=== PATIENT | female | born 1940 | race Hispanic/Latino ===

== ENCOUNTER 2019-04-06 16:57 | Inpatient (IN) | payer MEDICARE ==
[2019-04-06] MEDS ORDERED: CEFEPIME/NS 2 GM/100 ML 2 GM/100 ML BAG IV ONE (17:17)
[2019-04-06] MEDS ORDERED: IPRATROPIUM/ALBUTEROL SULFATE 3 ML AMPUL.NEB IH ONE ×2 (17:17→20:33)
--- NOTE | 2019-04-06 17:17 | Emergency Department Report ---
ED Shortness of Breath HPI - General Stated Complaint: PEARL Time Seen by Provider: 04/06/19 17:12 Source: patient, EMS Mode of arrival: Stretcher Limitations: No Limitations - History of Present Illness Initial Comments: Patient is a 78-year-old female that presents emergency room with complaints of shortness of breath 2 days. Patient states her symptoms are worsening. Patien t brought in by EMS. Report received from EMS. EMS states that the patient's initial oxygen saturation was 72% and patient was placed on a nonrebreather patient given magnesium, albuterol and Medrol prior to arrival. Patient states that she is feeling a little bit better. Patient denies chest pain. Patient denies fever and chills. Patient states she has a cough of nonproductive. Patient states she has history of COPD.. MD Complaint: shortness of breath, cough, "asthma attack" -: Sudden Severity: severe Consistency: constant Improves With: oxygen, rest, bronchodilators Worsens With: exertion Known History Of: COPD Associated Symptoms: cough, sputum production Treatments Prior to Arrival: oxygen, bronchodilator, other - Related Data Home Oxygen Therapy: No Home Medications Medication Instructions Recorded Confirmed Last Taken No Known Home Medications [No 04/06/19 04/06/19 Unknown Reported Home Medications] Allergies Allergy/AdvReac Type Severity Reaction Status Date / Time No Known Allergies Allergy Verified 04/06/19 23:11 ED Review of Systems ROS: Stated complaint: PEARL Other details as noted in HPI Constitutional: denies: chills, fever Eyes: denies: eye pain, eye discharge, vision change ENT: denies: ear pain, throat pain Respiratory: cough, shortness of breath, SOB with exertion, SOB at rest, wheezing Cardiovascular: denies: chest pain, palpitations Endocrine: no symptoms reported Gastrointestinal: denies: abdominal pain, nausea, diarrhea Genitourinary: denies: urgency, dysuria, discharge Musculoskeletal: denies: back pain, joint swelling, arthralgia Skin: denies: rash, lesions Neurological: denies: headache, weakness, paresthesias Psychiatric: denies: anxiety, depression Hematological/Lymphatic: denies: easy bleeding, easy bruising ED Past Medical Hx - Past Medical History Previous Medical History?: Yes Hx COPD: Yes - Surgical History Past Surgical History?: No - Family History Family history: no significant - Social History Smoking Status: Current Every Day Smoker Substance Use Type: None - Medications Home Medications: Home Medications Medication Instructions Recorded Confirmed Last Taken Type No Known Home Medications [No 04/06/19 04/06/19 Unknown History Reported Home Medications] ED Physical Exam - General Limitations: No Limitations General appearance: alert, in distress - Head Head exam: Present: atraumatic, normocephalic - Eye Eye exam: Present: normal appearance - ENT ENT exam: Present: mucous membranes moist - Neck Neck exam: Present: normal inspection - Respiratory Respiratory exam: Present: respiratory distress, rhonchi - Cardiovascular Cardiovascular Exam: Present: regular rate, normal rhythm. Absent: systolic murmur, diastolic murmur, rubs, gallop - GI/Abdominal GI/Abdominal exam: Present: soft, normal bowel sounds - Rectal Rectal exam: Present: deferred - Extremities Exam Extremities exam: Present: normal inspection - Back Exam Back exam: Present: normal inspection - Neurological Exam Neurological exam: Present: alert, oriented X3 - Psychiatric Psychiatric exam: Present: normal affect, normal mood - Skin Skin exam: Present: warm, dry, intact, normal color. Absent: rash ED Course Vital Signs 04/06/19 04/06/19 04/06/19 17:22 18:16 19:30 Temperature 98.0 F Pulse Rate 78 87 Respiratory 20 20 20 Rate Blood Pressure 127/65 Blood Pressure 125/75 [Right] O2 Sat by Pulse 98 96 Oximetry 04/06/19 04/07/19 21:27 00:26 Temperature Pulse Rate 81 63 Respiratory 21 20 Rate Blood Pressure Blood Pressure 127/84 129/67 [Right] O2 Sat by Pulse 97 97 Oximetry - Reevaluation(s) Reevaluation #1: Initial evaluation done. Patient's oxygen saturation on 100 and patient is on a nonrebreather. Patient will be decreased to a nasal cannula 4 L. 04/06/19 17:15 Reevaluation #2: Patient's O2 sat on 4 L 100%. We will continue to decrease oxygen. 04/06/19 18:13 Reevaluation #3: I discussed all results with patient. I discussed plan of care with patient. Patient agrees plan of care and admission. 04/06/19 19:13 Reevaluation #4: Patient states she is feeling better. Patient's oxygen is better. Patient wheezing again. Patient will be given another DuoNeb. 04/06/19 20:44 - Consultations Consultation #1: Hospitalist consult for admission. Hospitalist to admit patient. 04/06/19 19:13 ED Medical Decision Making - Lab Data Result diagrams: 04/06/19 17:27 04/06/19 17:27 - EKG Data -: EKG Interpreted by Me EKG shows normal: sinus rhythm, axis, intervals, QRS complexes, ST-T waves Rate: normal - Radiology Data Radiology results: report reviewed, image reviewed CHEST 1 VIEW 1739 INDICATION / CLINICAL INFORMATION: Dyspnea. COMPARISON: None available. FINDINGS: SUPPORT DEVICES: None HEART / MEDIASTINUM: No significant abnormality. LUNGS / PLEURA: Diffuse moderate chronic appearing changes are seen throughout both lung leach. Density in the right upper lung field appears to represent calcification from the anterior right first rib. No areas of consolidation are seen. No pneumothorax. ADDITIONAL FINDINGS: No significant additional findings. IMPRESSION: Moderate chronic changes are noted. Though without prior studies it is difficult to exclude an acute change, no obvious acute abnormalities are seen. - Medical Decision Making Patient is a 78-year-old female that presents emergency room for wheezing, cough and shortness of breath. Patient found to be in COPD exacerbation along with hypoxia. Patient placed on oxygen. Patient given multiple medications prior to arrival, Medrol, oxygen, albuterol, magnesium run. Patient 100% on a nonrebreather and was transitioned to a nasal cannula. Patient admitted to the hospitalist service. Patient's labs unremarkable. Patient's chest x-ray negative. Patient given DuoNeb in the ER. - Differential Diagnosis wheezing. Cough. Shortness of breath. COPD exacerbation. Hypoxia Critical Care Time: Yes Critical care attestation.: If time is entered above; I have spent that time in minutes in the direct care of this critically ill patient, excluding procedure time. Critical Care Time: 45 minutes ED Disposition Clinical Impression: Hypoxia, SOB (shortness of breath), Respiratory distress, COPD exacerbation Disposition: OP ADMIT IP TO THIS HOSP Is pt being admited?: Yes Does the pt Need Aspirin: No Condition: Critical Time of Disposition: 19:12
[2019-04-06 17:53] LABS: Hemoglobin 11.3 gm/dl (10.1-14.3); Lymphocytes % (Auto) 19.5 % (13.4-35.0); Mean Corpuscular HGB Conc 32 % (30-34); Mean Corpuscular Volume 78 fl (79-97); Monocytes % (Auto) 7.7 % (0.0-7.3); Platelet Count 208 K/mm3 (140-440); Red Blood Count 4.64 M/mm3 (3.65-5.03); Red Cell Distribution Width 19.5 % (13.2-15.2)
[2019-04-06 17:54] LABS: Basophils # (Auto) 0.1 K/mm3 (0.0-0.1); Basophils % (Auto) 1.5 % (0.0-1.8); Eosinophils # (Auto) 0.5 K/mm3 (0.0-0.4); Eosinophils % (Auto) 7.6 % (0.0-4.3); Lymphocytes # (Auto) 1.3 K/mm3 (1.2-5.4); Monocytes # (Auto) 0.5 K/mm3 (0.0-0.8)
--- NOTE | 2019-04-06 17:56 | XRay Report ---
CHEST 1 VIEW 1739 INDICATION / CLINICAL INFORMATION: Dyspnea. COMPARISON: None available. FINDINGS: SUPPORT DEVICES: None HEART / MEDIASTINUM: No significant abnormality. LUNGS / PLEURA: Diffuse moderate chronic appearing changes are seen throughout both lung leach. Dens ity in the right upper lung field appears to represent calcification from the anterior right first ri b. No areas of consolidation are seen. No pneumothorax. ADDITIONAL FINDINGS: No significant additional findings. IMPRESSION: Moderate chronic changes are noted. Though without prior studies it is difficult to exclu de an acute change, no obvious acute abnormalities are seen. Signer Name: Bharath Ludwig MD Signed: 04/06/2019 5:52 PM Workstation Name: [id number]
[2019-04-06 17:59] LABS: Alanine Aminotransferase 7 units/L (7-56); BUN/Creatinine Ratio 23; Blood Urea Nitrogen 14 mg/dL (7-17); Calcium 9.2 mg/dL (8.4-10.2); Hemolysis Index 2
--- NOTE | 2019-04-06 23:09 | History and Physical Report ---
History of Present Illness Date of examination: 04/06/19 History of present illness: 78-year-old woman with a history of COPD comes emergency room with complaints of shortness of breath, wheezing. Also complain of chest pain in the epigastric area that started yesterday which she described as a hurting pain, constant, intensity follow 10, no radiation, cannot identify exacerbating or relieving factors. Denies nausea vomiting, diaphoresis or palpitation eview Of Systems: Constitutional: no weight loss, fever, chills Ears, eyes, nose, mouth and throat: no nasal congestion, no nasal discharge, no sinus pressure, blurry vision, diplopia Neck: No neck pain or rigidity. Cardiovascular: No palpitations, Respiratory: No cough Gastrointestinal: No hematochezia, abdominal pain Genitourinary : no dysuria, frequency , hematuria Musculoskeletal: no muscle ache , joint pain Integumentary: no rash, no pruritis Neurological: no parathesias, focal weakness Endocrine: no cold or heat intolerance, no polyuria or polydipsia Hematologic/Lymphatic: no easy bruising, no easy bleeding, no gland swelling Allergic/Immunologic: no urticaria, no angioedema. PAST MEDICAL HISTORY: COPD PAST SURGICAL HISTORY: none FAMILY HISTORY:hypertension, diabetes SOCIAL HISTORY: + tobacco, no drugs, alcohol Medications and Allergies Allergies Allergy/AdvReac Type Severity Reaction Status Date / Time No Known Allergies Allergy Verified 04/06/19 23:11 Home Medications Medication Instructions Recorded Confirmed Last Taken Type No Known Home Medications [No 04/06/19 04/06/19 Unknown History Reported Home Medications] Exam - Physical Exam Narrative exam: General Apperance: The patient sitting in bed no acute distress HEENT: Normocephalic, atraumatic. Pupils equally round and reactive to light, extraocular movement intact, and no sclericterus or JVD or thyromegaly or nodule. Neck supple, no carotid bruit, mucous membranes moist, no exudate or erythema Heart: S1-S2, regular is rhythm Lungs: Wheezing bilaterally, breathing comfortable Abdomen: Positive bowel sounds, soft, nontender, nondistended, no organomegaly Extremities: No edema cyanosis clubbing Skin: no rash, nodule, warm and dry Neuro:CN 2 -12 intact, motor/sensory intact, speech is fluent - Constitutional Vitals: Temp Pulse Resp BP Pulse Ox 98.0 F 81 21 127/84 97 04/06/19 17:22 04/06/19 21:27 04/06/19 21:27 04/06/19 21:27 04/06/19 21:27 Results - Labs CBC & Chem 7: 04/07/19 04:26 04/07/19 04:26 Labs: Abnormal lab results 04/06/19 04/06/19 Range/Units 17:27 17:27 MCV 78 L (79-97) fl MCH 25 L (28-32) pg RDW 19.5 H (13.2-15.2) % [place] % (Auto) 7.7 H (0.0-7.3) % Eos % (Auto) 7.6 H (0.0-4.3) % Eos # 0.5 H (0.0-0.4) K/mm3 Creatinine 0.6 L (0.7-1.2) mg/dL Glucose 115 H (65-100) mg/dL - Imaging and Cardiology EKG: image reviewed Chest x-ray: report reviewed Assessment and Plan Assessment Acute COPD exacerbation Chest pain Plan Start high-dose steroids, and breathing treatment Check cardiac enzymes, stress test DVT prophylaxis
[2019-04-07] MEDS ORDERED: ACETAMINOPHEN 325 MG TAB PO PRN (01:04)
[2019-04-07] MEDS ORDERED: ONDANSETRON 4 MG/2 ML INJ IV PRN (01:04)
[2019-04-07 02:18] LABS: Creatine Kinase MB 3.4 ng/mL (0.0-4.0)
[2019-04-07] MEDS: IPRATROPIUM/ALBUTEROL SULFATE 3 ML AMPUL.NEB IH SCH ×3 (03:21→14:09)
[2019-04-07 05:19] LABS: Basophils % (Auto) 0.5 % (0.0-1.8); Eosinophils % (Auto) 0.1 % (0.0-4.3); Hematocrit 36.8 % (30.3-42.9); Hemoglobin 11.7 gm/dl (10.1-14.3); Lymphocytes # (Auto) 0.3 K/mm3 (1.2-5.4); Lymphocytes % (Auto) 9.9 % (13.4-35.0); Mean Corpuscular HGB Conc 32 % (30-34); Mean Corpuscular Volume 77 fl (79-97); Monocytes # (Auto) 0.1 K/mm3 (0.0-0.8); Monocytes % (Auto) 1.5 % (0.0-7.3); Platelet Count 233 K/mm3 (140-440); Red Blood Count 4.76 M/mm3 (3.65-5.03); Red Cell Distribution Width 19.5 % (13.2-15.2)
[2019-04-07 05:44] LABS: BUN/Creatinine Ratio 30; Blood Urea Nitrogen 18 mg/dL (7-17); Calcium 9.1 mg/dL (8.4-10.2); Hemolysis Index 0
[2019-04-07] MEDS: methylPREDNISolone Sod Succinate 125 MG/2 ML INJ IV SCH ×2 (06:27→13:21)
[2019-04-07 07:22] LABS: Creatine Kinase MB 2.7 ng/mL (0.0-4.0)
[2019-04-07] MEDS ORDERED: REGADENOSON 0.4 MG/5 ML INJ IV ONE ×2 (08:56→08:57)
[2019-04-07] MEDS ORDERED: ENOXAPARIN 30 MG/0.3 ML INJ SUB-Q SCH (10:00)
--- NOTE | 2019-04-07 10:41 | Progress Note ---
Assessment and Plan Assessment and plan: Acute COPD exacerbation. Continue bronchodilators and nebulizer treatments. Continue O2. Systemic steroids. Chest pain. Stress thallium today. Tobacco abuse. Patient was counseled on cessation. History Interval history: No new issues overnight. Patient seen in stress lab still complaining of chest pain. Hospitalist Physical - Constitutional Vitals: Temp Pulse Resp BP Pulse Ox 97.9 F 92 H 20 131/64 97 04/07/19 07:39 04/07/19 08:00 04/07/19 08:00 04/07/19 09:48 04/07/19 08:19 General appearance: Present: no acute distress, well-nourished - EENT Eyes: Present: PERRL, EOM intact ENT: hearing intact, clear oral mucosa, dentition normal - Neck Neck: Present: supple, normal ROM - Respiratory Respiratory effort: normal Respiratory: bilateral: CTA - Cardiovascular Rhythm: regular Heart Sounds: Present: S1 & S2. Absent: gallop, rub - Extremities Extremities: no ischemia, No edema, Full ROM - Abdominal General gastrointestinal: soft, non-tender, non-distended, normal bowel sounds - Integumentary Integumentary: Present: clear, warm, dry - Neurologic Neurologic: CNII-XII intact, moves all extremities Results - Labs CBC & Chem 7: 04/07/19 04:26 04/07/19 04:26 Labs: Laboratory Last Values WBC 3.5 K/mm3 (4.5-11.0) L 04/07/19 04:26 RBC 4.76 M/mm3 (3.65-5.03) 04/07/19 04:26 Hgb 11.7 gm/dl (10.1-14.3) 04/07/19 04:26 Hct 36.8 % (30.3-42.9) 04/07/19 04:26 MCV 77 fl (79-97) L 04/07/19 04:26 MCH 25 pg (28-32) L 04/07/19 04:26 MCHC 32 % (30-34) 04/07/19 04:26 RDW 19.5 % (13.2-15.2) H 04/07/19 04:26 Plt Count 233 K/mm3 (140-440) 04/07/19 04:26 Lymph % (Auto) 9.9 % (13.4-35.0) L 04/07/19 04:26 [place] % (Auto) 1.5 % (0.0-7.3) 04/07/19 04:26 Eos % (Auto) 0.1 % (0.0-4.3) 04/07/19 04:26 Baso % (Auto) 0.5 % (0.0-1.8) 04/07/19 04:26 Lymph # 0.3 K/mm3 (1.2-5.4) L 04/07/19 04:26 [place] # 0.1 K/mm3 (0.0-0.8) 04/07/19 04:26 Eos # 0.0 K/mm3 (0.0-0.4) 04/07/19 04:26 Baso # 0.0 K/mm3 (0.0-0.1) 04/07/19 04:26 Seg Neutrophils % 88.0 % (40.0-70.0) H 04/07/19 04:26 Seg Neutrophils # 3.1 K/mm3 (1.8-7.7) 04/07/19 04:26 Sodium 137 mmol/L (137-145) 04/07/19 04:26 Potassium 4.7 mmol/L (3.6-5.0) D 04/07/19 04:26 Chloride 98.4 mmol/L (98-107) 04/07/19 04:26 Carbon Dioxide 25 mmol/L (22-30) 04/07/19 04:26 Anion Gap 18 mmol/L 04/07/19 04:26 BUN 18 mg/dL (7-17) H 04/07/19 04:26 Creatinine 0.6 mg/dL (0.7-1.2) L 04/07/19 04:26 Estimated GFR > 60 ml/min 04/07/19 04:26 BUN/Creatinine Ratio 30 % 04/07/19 04:26 Glucose 145 mg/dL (65-100) H 04/07/19 04:26 Calcium 9.1 mg/dL (8.4-10.2) 04/07/19 04:26 Total Bilirubin 0.70 mg/dL (0.1-1.2) 04/06/19 17:27 AST 14 units/L (5-40) 04/06/19 17:27 ALT 7 units/L (7-56) 04/06/19 17:27 Alkaline Phosphatase 87 units/L (35-129) 04/06/19 17:27 Total Creatine Kinase 52 units/L (30-135) 04/07/19 06:58 CK-MB (CK-2) 2.7 ng/mL (0.0-4.0) 04/07/19 06:58 CK-MB (CK-2) Rel Index 5.1 (0-4) H 04/07/19 06:58 Troponin T < 0.010 ng/mL (0.00-0.029) 04/07/19 06:58 Total Protein 7.0 g/dL (6.3-8.2) 04/06/19 17:27 Albumin 4.0 g/dL (3.9-5) 04/06/19 17:27 Albumin/Globulin Ratio 1.3 % 04/06/19 17:27 Active Medications - Current Medications Current Medications: Generic Name Dose Route Start Last Admin Trade Name Freq PRN Reason Stop Dose Admin Acetaminophen 650 mg 04/07/19 01:04 Tylenol PO Q4H PRN Pain MILD(1-3)/Fever >100.5/MCWILLIAMS Albuterol/Ipratropium 1 ampul 04/07/19 02:00 04/07/19 08:16 Duoneb *Not For Prn Use* IH 1 ampul Q6HRT SEMAJ Administration Enoxaparin Sodium 30 mg 04/07/19 10:00 Lovenox SUB-Q QDAY SEMAJ Methylprednisolone Sodium Succinate 80 mg 04/07/19 06:00 04/07/19 06:27 Solu-Medrol IV 80 mg Q8HR SEMAJ Administration Ondansetron HCl 4 mg 04/07/19 01:04 Zofran IV Q8H PRN Nausea And Vomiting Pneumococcal Polyvalent Vaccine 0.5 ml 04/07/19 12:00 Pneumovax 23 IM 04/07/19 12:01 .ONCE ONE Sodium Chloride 10 ml 04/07/19 10:00 Sodium Chloride Flush Syringe 10 Ml IV BID SEMAJ Sodium Chloride 10 ml 04/07/19 01:04 Sodium Chloride Flush Syringe 10 Ml IV PRN PRN LINE FLUSH
[2019-04-07] MEDS ORDERED: PNEUMOCOCCAL 23 Valent 0.5 ML VIAL IM ONE (12:00)
[2019-04-07] MEDS ORDERED: FLU VACC QUAD 2019-20 (3 YR UP)/PF 60 MCG/0.5 ML SYRINGE IM ONE (12:00)
[2019-04-07 12:33] VITALS: BP 138/84
--- NOTE | 2019-04-08 01:16 | Treadmill Report ---
THALLIUM STRESS TEST. LEFT VENTRICLE: Left ventricular chamber size is within normal spread. There is a small fixed apical defect consistent with normal apical thinning, otherwise homogeneous uptake of the tracer in all segments, no significant defects identified. Gated analysis demonstrates normal left ventricular systolic function, ejection fraction greater than 70%. CONCLUSION: Normal myocardial perfusion study. [facility]# [id number] CA/NTS
--- NOTE | 2019-04-08 10:07 | Discharge Summary ---
Providers - Providers Date of Admission: 04/06/19 23:08 Date of discharge: 04/07/19 Attending physician: SAVANNAH BELCHER Primary care physician: ERIKA HAAS MD Hospitalization Reason for admission: copd, cp Condition: Fair Hospital course: 78-year-old woman with a history of COPD comes emergency room with complaints of shortness of breath, wheezing. Also complain of chest pain in the epigastric area that started yesterday which she described as a hurting pain, constant, intensity follow 10, no radiation, cannot identify exacerbating or relieving factors. The patient was admitted with diagnosis of COPD exacerbation and chest pain. The patient received bronchodilators/nebulizers and systemic steroids. The patient underwent stress test that was negative for ischemia. Patient needed continued treatment for the COPD exacerbation however left AMA. Discharge time 32 minutes. Disposition: DC-07 LEFT AGAINST MED ADVICE Core Measure Documentation - Palliative Care Palliative Care/ Comfort Measures: Not Applicable - Core Measures Any of the following diagnoses?: none Exam - Constitutional Vitals: Temp Pulse Resp BP Pulse Ox 97.7 F 94 H 18 138/84 93 04/07/19 12:05 04/07/19 14:00 04/07/19 14:00 04/07/19 12:05 04/07/19 12:05 Plan Follow up with: ERIKA MCGOWAN MD [Primary Care Provider] - 3-5 Days
== END 2019-04-07 17:17 | disposition left against medical advice (07) | DRG 192 ==
LOC: ED 16:57 → 4A 23:08
PROVIDERS: ADMIT Internal Medicine; ATTEND Hospitalist
PROC: 3E0234Z Introduction of Serum, Toxoid and Vaccine into Muscle, Percutaneous Approach (ICD-10-PCS; principal; 2019-04-07)
DX: J44.1 Chronic obstructive pulmonary disease with (acute) exacerbation (principal); F17.200 Nicotine dependence, unspecified, uncomplicated; R09.02 Hypoxemia; R06.03 Acute respiratory distress; Z71.6 Tobacco abuse counseling; Z82.49 Family history of ischemic heart disease and other diseases of the circulatory system; Z83.3 Family history of diabetes mellitus; Z23 Encounter for immunization
CPT/HCPCS: 36415; 71045; 78452; 80048; 80053; 82550; 82553; 84484; 85025; 87116; 90686; 90732; 93005; 93010; 93017; 94640; 94760; 99406; G0378; A9502; J0692; J1650; J2785; J2930

== ENCOUNTER 2019-06-07 20:45 | Emergency (ER) | payer MEDICARE ==
--- NOTE | 2019-06-07 21:20 | Event Note ---
ED Screening Note Date of service: 06/07/19 Time: 21:16 ED Screening Note: 78 y o f presents with sob x today at rest PMH: copd out of albuterol tobacco smoker This initial assessment/diagnostic orders/clinical plan/treatment(s) is/are subject to change based on patients health status, clinical progression and re- assessment by fellow clinical providers in the ED. Further treatment and workup at subsequent clinical providers discretion. Patient/guardian urged not to elope from the ED as their condition may be serious if not clinically assessed and managed. Initial orders include: cxr
[2019-06-07 21:41] LABS: Basophils # (Auto) 0.1 K/mm3 (0.0-0.1); Basophils % (Auto) 1.7 % (0.0-1.8); Eosinophils # (Auto) 0.7 K/mm3 (0.0-0.4); Eosinophils % (Auto) 11.2 % (0.0-4.3); Hematocrit 37.4 % (30.3-42.9); Lymphocytes # (Auto) 1.2 K/mm3 (1.2-5.4); Lymphocytes % (Auto) 20.1 % (13.4-35.0); Mean Corpuscular HGB Conc 32 % (30-34); Mean Corpuscular Volume 79 fl (79-97); Monocytes # (Auto) 0.4 K/mm3 (0.0-0.8); Monocytes % (Auto) 6.7 % (0.0-7.3); Platelet Count 315 K/mm3 (140-440); Red Blood Count 4.73 M/mm3 (3.65-5.03)
[2019-06-07 21:58] LABS: Creatine Kinase MB 5.2 ng/mL (0.0-4.0)
[2019-06-07 21:59] LABS: BUN/Creatinine Ratio 25; Blood Urea Nitrogen 15 mg/dL (7-17); Calcium 9.5 mg/dL (8.4-10.2); Hemolysis Index 10
[2019-06-07] MEDS ORDERED: predniSONE 20 MG TAB PO ONE (22:44)
[2019-06-07] MEDS ORDERED: IPRATROPIUM/ALBUTEROL SULFATE 3 ML AMPUL.NEB IH ONE (22:44)
[2019-06-07] MEDS ORDERED: levoFLOXacin 500 MG TAB PO ONE (22:44)
--- NOTE | 2019-06-07 22:44 | XRay Report ---
CHEST 2 VIEWS INDICATION / CLINICAL INFORMATION: sob. Dyspnea. COMPARISON: None available. FINDINGS: SUPPORT DEVICES: None. HEART / MEDIASTINUM: No significant abnormality. LUNGS / PLEURA: Extensive COPD type changes without evidence of acute airspace pneumonia. Signer Name: Kristian Singleton MD Signed: 06/07/2019 10:40 PM Workstation Name: [id number]
--- NOTE | 2019-06-07 22:50 | Emergency Department Report ---
ED Shortness of Breath HPI - General Chief Complaint: Dyspnea/Respdistress Stated Complaint: CHEST PAIN/WHEEZING Time Seen by Provider: 06/07/19 22:43 Source: patient, family Mode of arrival: Ambulatory Limitations: Physical Limitation - History of Present Illness Initial Comments: Mrs. Angeles is a 78-year-old female with history of COPD, dementia who presents with shortness of breath and wheezing. She has been without her normal albuterol medication until today. Symptoms are worsening morning. She denies chest pain. Denies fever. She has nonproductive cough. She continues to smoke cigarettes. She recently changed to a new physician in [place]. She does not require home oxygen supplementation. She lives with her children. Her son is at the bedside. I reviewed electronic record. She was recently admitted April for COPD exacerbation. She underwent stress test at that time which was negative for ischemia. According to electronic record thallium treadmill test normal myocardial perfusion study with ejection fraction greater than 70%. Normal left ventricular systolic function. MD Complaint: shortness of breath -: Gradual, days(s) (2) Consistency: now resolved Improves With: bronchodilators Worsens With: lying flat, exertion Known History Of: COPD Context: smoke/fume exposure, other (she has been without medication for the last several days) Associated Symptoms: cough - Related Data Previous Rx's Medication Instructions Recorded Last Taken Type Prednisone [predniSONE 5 mg (6-Day 5 mg PO .TAPER #1 tab.ds.pk 06/07/19 Unknown Rx Pack, 21 Tabs)] levoFLOXacin [Levaquin TAB] 500 mg PO QDAY 6 Days #6 tablet 06/07/19 Unknown Rx Allergies Allergy/AdvReac Type Severity Reaction Status Date / Time No Known Allergies Allergy Verified 04/06/19 23:11 ED Review of Systems ROS: Stated complaint: CHEST PAIN/WHEEZING Other details as noted in HPI Comment: All other systems reviewed and negative Constitutional: denies: fever, malaise Respiratory: cough, shortness of breath, wheezing Cardiovascular: denies: chest pain ED Past Medical Hx - Past Medical History Previous Medical History?: Yes Hx Pulmonary Embolism: No Hx Seizures: No Hx Asthma: Yes Hx COPD: Yes Hx Tuberculosis: No Hx Dementia: Yes Additional medical history: back pain - Surgical History Past Surgical History?: Yes Additional Surgical History: back surgery - Social History Smoking Status: Current Some Day Smoker Substance Use Type: None - Medications Home Medications: Home Medications Medication Instructions Recorded Confirmed Last Taken Type Prednisone [predniSONE 5 mg (6-Day 5 mg PO .TAPER #1 tab.ds.pk 06/07/19 Unknown Rx Pack, 21 Tabs)] levoFLOXacin [Levaquin TAB] 500 mg PO QDAY 6 Days #6 tablet 06/07/19 Unknown Rx ED Physical Exam - General Limitations: Physical Limitation General appearance: alert, in no apparent distress, other (speaking full word sentences, appears comfortable) - Head Head exam: Present: atraumatic, normocephalic - Eye Eye exam: Present: normal appearance - ENT ENT exam: Present: mucous membranes moist - Neck Neck exam: Present: normal inspection, full ROM - Respiratory Respiratory exam: Present: normal lung sounds bilaterally. Absent: respiratory distress, wheezes, rales, rhonchi - Cardiovascular Cardiovascular Exam: Present: regular rate, normal rhythm, normal heart sounds. Absent: systolic murmur, diastolic murmur, rubs, gallop - GI/Abdominal GI/Abdominal exam: Present: soft, normal bowel sounds. Absent: distended, guarding, rebound - Extremities Exam Extremities exam: Present: normal inspection - Neurological Exam Neurological exam: Present: alert, oriented X3 - Psychiatric Psychiatric exam: Present: normal affect, normal mood - Skin Skin exam: Present: warm, dry, intact, normal color. Absent: rash ED Course Vital Signs 06/07/19 06/07/19 21:14 22:43 Temperature 98.4 F Pulse Rate 93 H 84 Respiratory 18 16 Rate Blood Pressure 160/82 Blood Pressure 160/82 149/87 [Left] O2 Sat by Pulse 93 100 Oximetry ED Medical Decision Making - Lab Data Result diagrams: 06/07/19 21:28 06/07/19 21:28 Laboratory Results - last 24 hr 06/07/19 06/07/19 21:28 21:28 WBC 6.0 RBC 4.73 Hgb 12.0 Hct 37.4 MCV 79 MCH 25 L MCHC 32 RDW 19.0 H Plt Count 315 Lymph % (Auto) 20.1 [place] % (Auto) 6.7 Eos % (Auto) 11.2 H Baso % (Auto) 1.7 Lymph # 1.2 [place] # 0.4 Eos # 0.7 H Baso # 0.1 Seg Neutrophils % 60.3 Seg Neutrophils # 3.6 Sodium 138 Potassium 4.4 Chloride 100.4 Carbon Dioxide 27 Anion Gap 15 BUN 15 Creatinine 0.6 L Estimated GFR > 60 BUN/Creatinine Ratio 25 Glucose 98 Calcium 9.5 Total Creatine Kinase 78 CK-MB (CK-2) 5.2 H CK-MB (CK-2) Rel Index 6.6 H Troponin T < 0.010 - Radiology Data Radiology results: report reviewed, image reviewed Chest radiograph: Hyperinflated lungs, no pneumothorax, no infiltrate, normal cardiac silhouette process - Medical Decision Making Mild COPD exacerbation, provided DuoDERM Levaquin and prednisone and emergency department. Prescribed Levaquin and prednisone taper. Mrs. Angeles appears well. She will be discharged home. Critical care attestation.: If time is entered above; I have spent that time in minutes in the direct care of this critically ill patient, excluding procedure time. ED Disposition Clinical Impression: COPD exacerbation Disposition: DC-01 TO HOME OR SELFCARE Is pt being admited?: No Does the pt Need Aspirin: No Condition: Stable Instructions: Chronic Obstructive Pulmonary Disease (ED) Prescriptions: levoFLOXacin [Levaquin TAB] 500 mg PO QDAY 6 Days #6 tablet Prednisone [predniSONE 5 mg (6-Day Pack, 21 Tabs)] 5 mg PO .TAPER #1 tab.ds.pk Referrals: PRIMARY CARE, [Referring] - 3-5 Days
[2019-06-08 00:08] VITALS: BP 127/60
== END 2019-06-07 23:32 | disposition home or self-care (01) ==
LOC: ED 20:45
DX: J44.1 Chronic obstructive pulmonary disease with (acute) exacerbation (principal); J45.909 Unspecified asthma, uncomplicated; F03.90 Unspecified dementia, unspecified severity, without behavioral disturbance, psychotic disturbance, mood disturbance, and anxiety; F17.200 Nicotine dependence, unspecified, uncomplicated; Z98.890 Other specified postprocedural states; Z79.899 Other long term (current) drug therapy
CPT/HCPCS: 36415; 71046; 80048; 82550; 82553; 84484; 85025; 93005; 93010; 94640; 99284; J7512; 94644

== ENCOUNTER 2019-07-08 00:40 | Observation (INO) | payer MEDICARE ==
[2019-07-08] MEDS ORDERED: IPRATROPIUM 0.02% NEBU 2.5 ML IH ONE (00:51)
[2019-07-08] MEDS ORDERED: ALBUTEROL 2.5 MG/3 ML NEBU IH ONE (00:51)
[2019-07-08] MEDS ORDERED: methylPREDNISolone Sod Succinate 125 MG/2 ML INJ IV ONE (00:51)
[2019-07-08] MEDS ORDERED: MAGNESIUM SULFATE 1 GM in SODIUM CHLORIDE 0.9% 50 ML IV ONE (00:52)
[2019-07-08 01:11] LABS: Basophils # (Auto) 0.1 K/mm3 (0.0-0.1); Basophils % (Auto) 1.4 % (0.0-1.8); Eosinophils # (Auto) 0.4 K/mm3 (0.0-0.4); Eosinophils % (Auto) 7.8 % (0.0-4.3); Hematocrit 38.5 % (30.3-42.9); Hemoglobin 12.3 gm/dl (10.1-14.3); Lymphocytes # (Auto) 1.6 K/mm3 (1.2-5.4); Lymphocytes % (Auto) 30.5 % (13.4-35.0); Mean Corpuscular HGB Conc 32 % (30-34); Mean Corpuscular Volume 80 fl (79-97); Monocytes # (Auto) 0.5 K/mm3 (0.0-0.8); Monocytes % (Auto) 8.5 % (0.0-7.3); Platelet Count 239 K/mm3 (140-440); Red Cell Distribution Width 18.9 % (13.2-15.2)
--- NOTE | 2019-07-08 01:19 | XRay Report ---
CHEST 1 VIEW INDICATION: dyspnea COMPARISON: 06/07/2019 FINDINGS: Support devices: None Heart: Normal and unchanged Lungs/Pleura: Lungs are mildly hyperinflated but clear of acute disease. IMPRESSION: 1. No acute disease and no interval change. Signer Name: Honorio Wharton MD Signed: 07/08/2019 1:14 AM Workstation Name: [id number]
[2019-07-08 01:21] LABS: BUN/Creatinine Ratio 30; Blood Urea Nitrogen 18 mg/dL (7-17); Calcium 8.8 mg/dL (8.4-10.2); Hemolysis Index 6
--- NOTE | 2019-07-08 03:26 | Emergency Department Report ---
ED Shortness of Breath HPI - General Chief Complaint: Dyspnea/Respdistress Stated Complaint: PEARL Time Seen by Provider: 07/08/19 00:49 Source: patient, EMS Mode of arrival: Ambulatory Limitations: No Limitations - History of Present Illness Initial Comments: Patient is a 79-year-old female with a past medical history of COPD who is presenting with a COPD exacerbation. Patient also has a history of dementia and is unknown whether the patient is taking very good care of herself at home as her clothing smells of urine and she is very unkept. Patient was seen here on 06/07/2019 for COPD exacerbation. Patient's family called paramedics because the patient was having shortness of breath. Since been present for approximately 23 days according to the patient. She's had mild cough no fever. Patient's denies chest pain nausea vomiting. - Related Data Previous Rx's Medication Instructions Recorded Last Taken Type Prednisone [predniSONE 5 mg (6-Day 5 mg PO .TAPER #1 tab.ds.pk 06/07/19 Unknown Rx Pack, 21 Tabs)] levoFLOXacin [Levaquin TAB] 500 mg PO QDAY 6 Days #6 tablet 06/07/19 Unknown Rx Allergies Allergy/AdvReac Type Severity Reaction Status Date / Time No Known Allergies Allergy Verified 04/06/19 23:11 ED Review of Systems ROS: Stated complaint: PEARL Other details as noted in HPI Comment: All other systems reviewed and negative ED Past Medical Hx - Past Medical History Previous Medical History?: Yes Hx Pulmonary Embolism: No Hx Seizures: No Hx Asthma: Yes Hx COPD: Yes Hx Tuberculosis: No Hx Dementia: Yes Additional medical history: back pain - Surgical History Past Surgical History?: Yes Additional Surgical History: back surgery - Social History Smoking Status: Current Every Day Smoker Substance Use Type: None - Medications Home Medications: Home Medications Medication Instructions Recorded Confirmed Last Taken Type Prednisone [predniSONE 5 mg (6-Day 5 mg PO .TAPER #1 tab.ds.pk 06/07/19 Unknown Rx Pack, 21 Tabs)] levoFLOXacin [Levaquin TAB] 500 mg PO QDAY 6 Days #6 tablet 06/07/19 Unknown Rx ED Physical Exam - General Limitations: No Limitations General appearance: alert, in no apparent distress - Head Head exam: Present: atraumatic, normocephalic - Eye Eye exam: Present: normal appearance - ENT ENT exam: Present: mucous membranes moist - Neck Neck exam: Present: normal inspection - Respiratory Respiratory exam: Present: respiratory distress, wheezes. Absent: normal lung sounds bilaterally - Cardiovascular Cardiovascular Exam: Present: regular rate, normal rhythm, normal heart sounds. Absent: systolic murmur, diastolic murmur, rubs, gallop - GI/Abdominal GI/Abdominal exam: Present: soft, normal bowel sounds. Absent: distended, tenderness, guarding - Extremities Exam Extremities exam: Present: normal inspection - Back Exam Back exam: Present: normal inspection - Neurological Exam Neurological exam: Present: alert, oriented X3 - Psychiatric Psychiatric exam: Present: normal affect, normal mood - Skin Skin exam: Present: warm, dry, intact, normal color. Absent: rash ED Course Vital Signs 07/08/19 07/08/19 07/08/19 00:55 00:57 01:00 Pulse Rate 81 81 Pulse Rate [ 114 H Bilateral Throughout] Respiratory 22 23 Rate Respiratory 26 H Rate [Bilateral Throughout] Blood Pressure 171/83 O2 Sat by Pulse 84 98 Oximetry 07/08/19 01:10 Pulse Rate Pulse Rate [ Bilateral Throughout] Respiratory Rate Respiratory Rate [Bilateral Throughout] Blood Pressure O2 Sat by Pulse 97 Oximetry ED Medical Decision Making - Lab Data Result diagrams: 07/08/19 00:59 07/08/19 00:59 Lab Results 07/08/19 07/08/19 Range/Units 00:59 00:59 WBC 5.3 (4.5-11.0) K/mm3 RBC 4.80 (3.65-5.03) M/mm3 Hgb 12.3 (10.1-14.3) gm/dl Hct 38.5 (30.3-42.9) % MCV 80 (79-97) fl MCH 26 L (28-32) pg MCHC 32 (30-34) % RDW 18.9 H (13.2-15.2) % Plt Count 239 (140-440) K/mm3 Lymph % (Auto) 30.5 (13.4-35.0) % [place] % (Auto) 8.5 H (0.0-7.3) % Eos % (Auto) 7.8 H (0.0-4.3) % Baso % (Auto) 1.4 (0.0-1.8) % Lymph # 1.6 (1.2-5.4) K/mm3 [place] # 0.5 (0.0-0.8) K/mm3 Eos # 0.4 (0.0-0.4) K/mm3 Baso # 0.1 (0.0-0.1) K/mm3 Seg Neutrophils % 51.8 (40.0-70.0) % Seg Neutrophils # 2.8 (1.8-7.7) K/mm3 Sodium 139 (137-145) mmol/L Potassium 4.2 (3.6-5.0) mmol/L Chloride 103.0 (98-107) mmol/L Carbon Dioxide 25 (22-30) mmol/L Anion Gap 15 mmol/L BUN 18 H (7-17) mg/dL Creatinine 0.6 L (0.7-1.2) mg/dL Estimated GFR > 60 ml/min BUN/Creatinine Ratio 30 % Glucose 99 (65-100) mg/dL Calcium 8.8 (8.4-10.2) mg/dL - Radiology Data CHEST 1 VIEW INDICATION: dyspnea COMPARISON: 06/07/2019 FINDINGS: Support devices: None Heart: Normal and unchanged Lungs/Pleura: Lungs are mildly hyperinflated but clear of acute disease. IMPRESSION: 1. No acute disease and no interval change. Signer Name: Honorio Wharton MD Signed: 07/08/2019 1:14 AM Workstation Name: [id number] - Medical Decision Making Patient is a 79-year-old female who is presenting with cough and congestion. Patient also has had a continuing his wheeze despite neb treatments. Patient also received Solu-Medrol magnesium. Patient's swallowing team admission to the hospital for further management. Critical care attestation.: If time is entered above; I have spent that time in minutes in the direct care of this critically ill patient, excluding procedure time. ED Disposition Clinical Impression: COPD exacerbation, Respiratory distress Disposition: DC-09 OP ADMIT IP TO THIS HOSP Is pt being admited?: Yes Does the pt Need Aspirin: No Condition: Stable Instructions: Chronic Obstructive Pulmonary Disease (ED) Time of Disposition: 03:26
[2019-07-08] MEDS ORDERED: ONDANSETRON 4 MG/2 ML INJ IV PRN (03:48)
--- NOTE | 2019-07-08 03:54 | History and Physical Report ---
History of Present Illness Date of examination: 07/08/19 History of present illness: 79-year-old woman with a history of COPD comes emergency room with complaints of shortness of breath that started this morning. Denies cough and her symptoms not relieved with nebulizer treatments at home. Also complain of chest pain in the epigastric area that startedthis morning, which she described as a dull pain, constant, intensity5/10, no radiation, cannot identify exacerbating or relieving factors. Denies nausea vomiting, diaphoresis or palpitation. She had a stress test done in April that was negative for ischemia. Patient is being admitted for chest pain, COPD exacerbation Review Of Systems: Constitutional: no weight loss, fever, chills Ears, eyes, nose, mouth and throat: no nasal congestion, no nasal discharge, no sinus pressure, blurry vision, diplopia Neck: No neck pain or rigidity. Cardiovascular: No palpitations Respiratory: No cough Gastrointestinal: No hematochezia, abdominal pain Genitourinary : no dysuria, frequency , hematuria Musculoskeletal: no muscle ache , joint pain Integumentary: no rash, no pruritis Neurological: no parathesias, focal weakness Endocrine: no cold or heat intolerance, no polyuria or polydipsia Hematologic/Lymphatic: no easy bruising, no easy bleeding, no gland swelling Allergic/Immunologic: no urticaria, no angioedema. PAST MEDICAL HISTORY: COPD PAST SURGICAL HISTORY: none FAMILY HISTORY:hypertension, diabetes SOCIAL HISTORY: Smoke 3cigarettes a day, no drugs, alcohol Medications and Allergies Allergies Allergy/AdvReac Type Severity Reaction Status Date / Time No Known Allergies Allergy Verified 04/06/19 23:11 Home Medications Medication Instructions Recorded Confirmed Last Taken Type Prednisone [predniSONE 5 mg (6-Day 5 mg PO .TAPER #1 tab.ds.pk 06/07/19 Unknown Rx Pack, 21 Tabs)] levoFLOXacin [Levaquin TAB] 500 mg PO QDAY 6 Days #6 tablet 06/07/19 Unknown Rx Active Meds: Active Medications Acetaminophen (Tylenol) 650 mg PO Q4H PRN PRN Reason: Pain MILD(1-3)/Fever >100.5/[facility] Albuterol/Ipratropium (Duoneb *Not For Prn Use*) 1 ampul IH Q6HRT [facility] Methylprednisolone Sodium Succinate (Solu-Medrol) 125 mg IV Q6HR SEMAJ Ondansetron HCl (Zofran) 4 mg IV Q8H PRN PRN Reason: Nausea And Vomiting Sodium Chloride (Sodium Chloride Flush Syringe 10 Ml) 10 ml IV BID SEMAJ Sodium Chloride (Sodium Chloride Flush Syringe 10 Ml) 10 ml IV PRN PRN PRN Reason: LINE FLUSH Exam - Physical Exam Narrative exam: General Apperance: The patient sitting in bed no acute distress HEENT: Normocephalic, atraumatic. Pupils equally round and reactive to light, extraocular movement intact, and no sclericterus or JVD or thyromegaly or nodule. Neck supple, no carotid bruit, mucous membranes moist, no exudate or erythema Heart: S1-S2, regular is rhythm Lungs: Wheezing bilaterally, breathing comfortable Abdomen: Positive bowel sounds, soft, nontender, nondistended, no organomegaly Extremities: No edema cyanosis clubbing Skin: no rash, nodule, warm and dry Neuro:CN 2 -12 intact, motor/sensory intact, speech is fluent - Constitutional Vitals: Temp Pulse Resp BP Pulse Ox 114 H 26 H 171/83 97 07/08/19 01:00 07/08/19 01:00 07/08/19 00:57 07/08/19 01:10 Results - Labs CBC & Chem 7: 07/08/19 00:59 07/08/19 00:59 Labs: Abnormal lab results 07/08/19 07/08/19 Range/Units 00:59 00:59 MCH 26 L (28-32) pg RDW 18.9 H (13.2-15.2) % [place] % (Auto) 8.5 H (0.0-7.3) % Eos % (Auto) 7.8 H (0.0-4.3) % BUN 18 H (7-17) mg/dL Creatinine 0.6 L (0.7-1.2) mg/dL Assessment and Plan Assessment Acute COPD exacerbation Start high-dose steroids, nebulizer treatments Chest pain Check cardiac enzymes, consult cardiology stress test done in April was negative for ischemia DVT prophylaxis
[2019-07-08 04:54] LABS: Creatine Kinase MB 4.7 ng/mL (0.0-4.0)
[2019-07-08] MEDS: methylPREDNISolone Sod Succinate 125 MG/2 ML INJ IV SCH ×3 (05:54→17:49)
[2019-07-08] MEDS: IPRATROPIUM/ALBUTEROL SULFATE 3 ML AMPUL.NEB IH SCH ×3 (08:04→20:39)
--- NOTE | 2019-07-08 10:22 | Consultation ---
History of Present Illness Consult date: 07/08/19 Consult reason: chest pain History of present illness: This is a frail 79-year old woman who presented with shortness of breath, atypical chest pain and wheezing. Patient has a history of COPD and continues to smoke. She has been admitted with COPD exacerbation. An ECG is sinus rhythm with poor R wave progression. There is no prior cardiac history. Her latest cardiac workup was done at this hospital less than 3 months ago. At that time, she had a normal myocardial perfusion stress thallium, ejection fraction 70%. Medications and Allergies Allergies Allergy/AdvReac Type Severity Reaction Status Date / Time No Known Allergies Allergy Verified 04/06/19 23:11 Home Medications Medication Instructions Recorded Confirmed Last Taken Type Prednisone [predniSONE 5 mg (6-Day 5 mg PO .TAPER #1 tab.ds.pk 06/07/19 Unknown Rx Pack, 21 Tabs)] levoFLOXacin [Levaquin TAB] 500 mg PO QDAY 6 Days #6 tablet 06/07/19 Unknown Rx Active Meds: Active Medications Acetaminophen (Tylenol) 650 mg PO Q4H PRN PRN Reason: Pain MILD(1-3)/Fever >100.5/[facility] Albuterol/Ipratropium (Duoneb *Not For Prn Use*) 1 ampul IH Q6HRT [facility] Last Admin: 07/08/19 08:04 Dose: 1 ampul Documented by: Methylprednisolone Sodium Succinate (Solu-Medrol) 125 mg IV Q6HR [facility] Last Admin: 07/08/19 05:54 Dose: 125 mg Documented by: Ondansetron HCl (Zofran) 4 mg IV Q8H PRN PRN Reason: Nausea And Vomiting Sodium Chloride (Sodium Chloride Flush Syringe 10 Ml) 10 ml IV BID [facility] Sodium Chloride (Sodium Chloride Flush Syringe 10 Ml) 10 ml IV PRN PRN PRN Reason: LINE FLUSH Physical Examination Vital Signs Pulse Resp Pulse Ox 81 22 84 07/08/19 00:55 07/08/19 00:55 07/08/19 00:55 General appearance: no acute distress HEENT: Positive: PERRL Neck: Positive: trachea midline Cardiac: Positive: Reg Rate and Rhythm Lungs: Positive: Decreased Breath Sounds, Wheezes Neuro: Positive: Grossly Intact Extremities: Absent: edema Results 07/08/19 00:59 07/08/19 00:59 Cardiac Enzymes 07/08/19 Range/Units 04:04 CK-MB (CK-2) 4.7 H (0.0-4.0) ng/mL CBC 07/08/19 Range/Units 00:59 WBC 5.3 (4.5-11.0) K/mm3 RBC 4.80 (3.65-5.03) M/mm3 Hgb 12.3 (10.1-14.3) gm/dl Hct 38.5 (30.3-42.9) % Plt Count 239 (140-440) K/mm3 Lymph # 1.6 (1.2-5.4) K/mm3 [place] # 0.5 (0.0-0.8) K/mm3 Eos # 0.4 (0.0-0.4) K/mm3 Baso # 0.1 (0.0-0.1) K/mm3 Comprehensive Metabolic Panel 07/08/19 Range/Units 00:59 Sodium 139 (137-145) mmol/L Potassium 4.2 (3.6-5.0) mmol/L Chloride 103.0 (98-107) mmol/L Carbon Dioxide 25 (22-30) mmol/L BUN 18 H (7-17) mg/dL Creatinine 0.6 L (0.7-1.2) mg/dL Glucose 99 (65-100) mg/dL Calcium 8.8 (8.4-10.2) mg/dL Assessment and Plan - Patient Problems (1) COPD exacerbation Current Visit: Yes Status: Acute
[2019-07-08] MEDS: ACETAMINOPHEN 325 MG TAB PO PRN ×2 (11:06→20:33)
[2019-07-08 11:32] LABS: Creatine Kinase MB 5.3 ng/mL (0.0-4.0)
--- NOTE | 2019-07-08 14:57 | Event Note ---
Date: 07/08/19 Patient with COPD exacerbation, chest pain. I have seen and examined her. Continue current management.
[2019-07-08] MEDS: BENZONATATE 100 MG CAP PO SCH ×3 (17:49→21:20)
[2019-07-08] MEDS ORDERED: MORPHINE 2 MG/1 ML INJ IV PRN (18:13)
[2019-07-08 21:24] VITALS: BP 127/74
[2019-07-09] MEDS: methylPREDNISolone Sod Succinate 125 MG/2 ML INJ IV SCH ×2 (00:43→05:07)
[2019-07-09] MEDS: IPRATROPIUM/ALBUTEROL SULFATE 3 ML AMPUL.NEB IH SCH ×2 (02:30→08:41)
[2019-07-09] MEDS ORDERED: NICOTINE 7 MG/24 HR PATCH TD ONE (02:48)
[2019-07-09] MEDS: BENZONATATE 100 MG CAP PO SCH (05:07)
[2019-07-09 08:32] LABS: Hemoglobin 11.6 gm/dl (10.1-14.3); Mean Corpuscular HGB Conc 31 % (30-34); Mean Corpuscular Volume 79 fl (79-97); Platelet Count 252 K/mm3 (140-440); Red Blood Count 4.66 M/mm3 (3.65-5.03); Red Cell Distribution Width 18.9 % (13.2-15.2)
[2019-07-09 08:59] LABS: BUN/Creatinine Ratio 40; Blood Urea Nitrogen 28 mg/dL (7-17); Hemolysis Index 1
[2019-07-09 10:06] LABS: Basophils % (Manual) 0 % (0.0-1.8); Eosinophils % (Manual) 0 % (0.0-4.3); Total Cells Counted 100
[2019-07-09 10:10] LABS: Smudge Cells Few
[2019-07-09 10:11] LABS: Platelet Estimate Consistent w Auto; Target Cells Few
--- NOTE | 2019-07-09 12:58 | Discharge Summary ---
Providers - Providers Date of Admission: 07/08/19 04:14 Date of discharge: 07/09/19 Attending physician: RELL FORD Primary care physician: DANIEL TO Hospitalization Condition: Fair Hospital course: 79-year-old woman with a history of COPD presented with shortness of breath and chest pain that started in morning. Chest pain was described as a dull pain, constant, intensity, 5/10, no radiation. She was seen and evaluated in emergency department and admitted for management of COPD and chest pain to rule out acute coronary syndrome. He was given Aspirin po and solumedrol iv. Patient was evaluated by cardiology and chest pain determined to be noncardiac. However following day patient decided to sign out against medical advice and left hospital without completing treatment for COPD exacerbation. Disposition: DC- LEFT AGAINST MED ADVICE - Discharge Diagnoses (1) Chest pain Status: Acute (2) COPD exacerbation Status: Acute (3) Acute respiratory failure Status: Acute (4) Left against medical advice Status: Acute (5) Medical non-compliance Status: Acute Core Measure Documentation - Palliative Care Palliative Care/ Comfort Measures: Not Applicable - Core Measures Any of the following diagnoses?: none Exam - Constitutional Vitals: Temp Pulse Resp BP Pulse Ox 98.6 F 75 18 127/74 99 07/08/19 21:02 07/09/19 02:30 07/09/19 09:00 07/08/19 21:02 07/08/19 21:02 Plan Follow up with: DANIEL TO MD [Primary Care Provider] - 7 Days Forms: AMA Form
[2019-07-10] MEDS ORDERED: NICOTINE 7 MG/24 HR PATCH TD SCH (10:00)
== END 2019-07-09 12:00 | disposition left against medical advice (07) ==
LOC: ED 00:40 → 4A 04:14 → INTOOBSV 04:14
PROVIDERS: ADMIT Internal Medicine; ATTEND Internal Medicine
DX: J44.1 Chronic obstructive pulmonary disease with (acute) exacerbation (principal); R07.9 Chest pain, unspecified; F17.210 Nicotine dependence, cigarettes, uncomplicated; F03.90 Unspecified dementia, unspecified severity, without behavioral disturbance, psychotic disturbance, mood disturbance, and anxiety; Z79.899 Other long term (current) drug therapy
CPT/HCPCS: 36415; 71045; 80048; 82550; 82553; 84484; 85007; 85025; 94640; 94644; 94760; 96365; 96375; 96376; 99285; 99406; G0378; J2270; J2930; J3475